=== PATIENT | male | born 1995 | race Caucasian/White ===

== ENCOUNTER 2018-02-24 20:37 | Emergency (ER) | payer OTHER ==
[~2018-02-24] VITALS: Ht 180.3 cm; Wt 77.3 kg
[2018-02-24 20:55] VITALS: BP 138/81
[2018-02-24] MEDS ORDERED: LIDOcaine 1.5% w/epinephrine 1:200,000 5ml ampul IJ ONE (21:20)
[2018-02-24] MEDS ORDERED: TETanus/Pertussis (Acell)/Diphther VAC/PF (Tdap-Adult) 0.5ml syringe IM ONE (22:15)
== END 2018-02-24 22:46 | disposition home or self-care (01) ==
LOC: ER 20:38
DX: S01.112A Laceration without foreign body of left eyelid and periocular area, initial encounter (principal); S01.412A Laceration without foreign body of left cheek and temporomandibular area, initial encounter; V00.131A Fall from skateboard, initial encounter; Y93.51 Activity, roller skating (inline) and skateboarding; Y92.89 Other specified places as the place of occurrence of the external cause; Y99.8 Other external cause status
CPT/HCPCS: 12011; 90471; 90715; 99283; A6449; J3490

== ENCOUNTER 2018-03-03 14:50 | Emergency (ER) | payer OTHER ==
[~2018-03-03] VITALS: Ht 180.3 cm; Wt 63.0 kg
[2018-03-03 15:17] VITALS: BP 131/67
== END 2018-03-03 16:26 | disposition home or self-care (01) ==
LOC: ER 14:51
DX: S01.112D Laceration without foreign body of left eyelid and periocular area, subsequent encounter (principal); V00.131D Fall from skateboard, subsequent encounter
CPT/HCPCS: 99284